=== PATIENT | female | born 1955 | race African-American/Black ===

== ENCOUNTER 2021-11-03 13:50 | Inpatient (IN) | payer OTHER ==
[2021-11-03] MEDS ORDERED: LOPERAMIDE HCL 2 MG CAPSULE PO PRN (14:52)
[2021-11-03] MEDS ORDERED: ACETAMINOPHEN 325 MG TABLET (FP) PO PRN (14:52)
[2021-11-03] MEDS ORDERED: MAGNESIUM HYDROX 2400MG/30ML ORAL SUSPENSION 30 ML CUP PO PRN (14:52)
[2021-11-03] MEDS ORDERED: MAGNESIUM CITRATE 300 ML BOTTLE PO PRN (14:52)
[2021-11-03] MEDS ORDERED: MAG HYDROX/AL HYDROX/SIMETH 30 ML UNIT-DOSE CUP PO PRN (14:52)
[2021-11-03] MEDS ORDERED: P-EPHED 60MG/TRIPROLIDI 2.5MG TABLET PO PRN (14:52)
[2021-11-03] MEDS ORDERED: IBUPROFEN 400 MG TABLET (FP) PO PRN (14:52)
[2021-11-03] MEDS ORDERED: guaiFENesin 200 MG/10 ML 10 ML UNIT-DOSE CUPS PO PRN (14:52)
[2021-11-03] MEDS ORDERED: NICOTINE 10 MG CARTRIDGE (INHALER) IH PRN (14:52)
[2021-11-03 19:23] VITALS: BMI 27.0
[2021-11-03] MEDS ORDERED: ALBUTEROL SO4 HFA INHALER IH ONE (19:36)
[2021-11-03] MEDS ORDERED: hydrOXYzine PAMOATE 25 MG CAPSULE (FP) PO ONE (19:36)
[2021-11-03] MEDS: hydrOXYzine PAMOATE 25 MG CAPSULE (FP) PO SCH ×2 (19:38→22:31)
[2021-11-03] MEDS: ALBUTEROL SO4 HFA INHALER IH PRN (19:38)
[2021-11-03] MEDS ORDERED: MELATONIN 5 MG TABLETS PO SCH (22:00)
[2021-11-03] MEDS ORDERED: THIAMINE HCL 100 MG TABLET (FP) PO SCH (22:00)
[2021-11-03] MEDS ORDERED: MONTELUKAST NA 10 MG TABLET PO SCH (22:00)
[2021-11-04] MEDS: hydrOXYzine PAMOATE 25 MG CAPSULE (FP) PO SCH (06:07)
[2021-11-04] MEDS: ALBUTEROL SO4 HFA INHALER IH PRN (06:18)
[2021-11-04 09:34] VITALS: BP 99/55; PULSE 73; TEMP 96.9
[2021-11-04] MEDS ORDERED: NICOTINE 7 MG/24 HOURS TOPICAL PATCH TD SCH (10:00)
[2021-11-04] MEDS ORDERED: PRENATAL VITAMINS W/ FOLIC ACID TABLET (FP) PO SCH (10:00)
[2021-11-04 11:43] LABS: CALCIUM 8.5 mg/dL (8.5-10.1); HEMATOCRIT 36.6 % (32.4-45.2); MCH 28.6 pg (25.7-33.7); MCHC 32.9 g/dl (32.0-36.0); MEAN CELL VOLUME 86.9 fl (80-96); MEAN PLT VOLUME 8.3 fl (7.5-11.1); PLATELET COUNT 222 10^3/uL (134-434); RBC 4.21 M/mm3 (3.60-5.2); RDW 14.2 % (11.6-15.6)
[2021-11-04 11:46] LABS: CREATININE 0.7 mg/dL (0.55-1.3)
[2021-11-04 11:48] LABS: BILIRUBIN,TOTAL 0.2 mg/dL (0.2-1)
[2021-11-04 13:20] LABS: SYPHILIS W/ RPR CONF REACTIVE (NONREACTIVE)
[2021-11-06 14:08] LABS: SARS-CoV-2 NAA Not Detected (Not Detected)
== END 2021-11-04 10:30 | disposition home or self-care (01) | DRG 897 ==
LOC: YASAS 13:50 → Y6N 19:46
PROVIDERS: ADMIT Allergy & Immunology; ATTEND Allergy & Immunology
PROC: HZ2ZZZZ Detoxification Services for Substance Abuse Treatment (ICD-10-PCS; principal; 2021-11-03)
DX: F14.23 Cocaine dependence with withdrawal (principal); Z21 Asymptomatic human immunodeficiency virus [HIV] infection status; J45.909 Unspecified asthma, uncomplicated; Z88.0 Allergy status to penicillin
CPT/HCPCS: 36415; 80053; 85027; 86593; 86780; 86803; 87522; 93005; 93010; C9803; U0003; U0005